=== PATIENT | female | born 1955 ===

== ENCOUNTER 2016-11-20 16:04 | Emergency (ER) | payer SELFPAY ==
[2016-11-20 16:16] VITALS: BP 131/76; PULSE 73; RESP 18; TEMP 98.8; O2SAT 99
[2016-11-20] MEDS ORDERED: Naproxen 500 MG TAB PO STA (16:21)
--- NOTE | 2016-11-20 17:42 | ED PDOC ---
Arrival/HPI - General Chief Complaint: Hip Pain Time Seen by Provider: 11/20/16 16:17 Historian: Patient - History of Present Illness Associated Symptoms (Text): 11/20/16 17:40 Yohana Eastman, 60 year old female presents to the ED on 11/20/16 with right hip pain after experiencing a fall. She denies any head injury. Past Medical History - Provider Review Nursing Documentation Reviewed: Yes - Past Medical History Past Medical History: No Previous - Psychiatric Hx Substance Use: No - Surgical History Hx Hysterectomy: Yes - Anesthesia Hx Anesthesia: Yes Hx Anesthesia Reactions: No Family/Social History - Physician Review Nursing Documentation Reviewed: Yes Family/Social History: Unknown Family HX Smoking Status: Never Smoked Hx Alcohol Use: No Hx Substance Use: No Allergies/Home Meds Allergies/Adverse Reactions: Allergies muscle relaxant Allergy (Uncoded 11/20/16 16:13) RASH Review of Systems - Physician Review All systems were reviewed & negative as marked: Yes - Review of Systems Constitutional: absent: Other (no head injury) Musculoskeletal: Other (right hip pain) Physical Exam Vital Signs Reviewed: Yes Vital Signs Temp Pulse Resp BP Pulse Ox 11/20/16 16:14 98.8 F 73 18 131/76 99 - Systems Exam Lower Extremity: Present: Normal ROM Psychiatric: Present: Alert, Oriented x 3 Medical Decision Making ED Course and Treatment: 11/20/16 17:47 Initial Impression: Right hip pain Initial Plan: * HIP MIN 2V w/ Pelvis RT [RAD] Stat * Naproxen 500 mg PO Once Stat * Reevaluation Scribe Attestation: Documented by Cristina Harp, acting as a scribe for Mago Regan PA-C. Provider Scribe Attestation: All medical record entries made by the Scribe were at my direction and personally dictated by me. I have reviewed the chart and agree that the record accurately reflects my personal performance of the history, physical exam, medical decision making, and the department course for this patient. I have also personally directed, reviewed, and agree with the discharge instructions and disposition. - RAD Interpretation Radiology Orders: 11/20/16 16:18 Hip Right [HIP MIN 2V W/ PELVIS RT] [RAD] Stat - Medication Orders Current Medication Orders: Discontinued Medications Naproxen (Naproxen) 500 mg PO ONCE STA Stop: 11/20/16 16:22 Last Admin: 11/20/16 16:26 Dose: 500 mg
--- NOTE | 2016-11-20 17:58 | ED PDOC ---
HPI: General Adult Time Seen by Provider: 11/20/16 16:17 Chief Complaint (Nursing): Hip Pain Chief Complaint (Provider): Right hip pain History Per: Patient History/Exam Limitations: no limitations Onset/Duration Of Symptoms: Days Have you had recent travel within the past 21 days to any of the following countries: [place], [place], [place] or [place]?: No Current Symptoms Are (Timing): Still Present Severity: Moderate Pain Scale Rating Of: 7 Location Of Discomfort (Image): 1 - Pain 2 - Pain Additional Complaint(s): Yohana Eastman, 60 year old female presents to the ED on 11/20/16 with right hip pain after experiencing a fall. PT states she slipped. No dizziness, chest pain or SOB. She denies any head injury. Past Medical History Reviewed: Historical Data, Nursing Documentation, Vital Signs Vital Signs: Last Vital Signs Temp 98.8 F 11/20/16 16:14 Pulse 73 11/20/16 16:14 Resp 18 11/20/16 16:14 BP 131/76 11/20/16 16:14 Pulse Ox 99 11/20/16 16:14 - Medical History PMH: No Chronic Diseases - Surgical History Surgical History: No Surg Hx - Family History Family History: States: Unknown Family Hx - Living Arrangements Living Arrangements: With Family - Social History Current smoker - smoking cessation education provided: No Alcohol: None Drugs: Denies - Home Medications Home Medications: Ambulatory Orders Medication Instructions Recorded Naproxen 500 mg PO Q12H PRN #20 ect 11/20/16 - Allergies Allergies/Adverse Reactions: Allergies Allergy/AdvReac Type Severity Reaction Status Date / Time muscle relaxant Allergy RASH Uncoded 11/20/16 16:13 Review of Systems ROS Statement: Except As Marked, All Systems Reviewed And Found Negative Musculoskeletal: Positive for: Other Physical Exam - Reviewed Nursing Documentation Reviewed: Yes Vital Signs Reviewed: Yes - Physical Exam Appears: Positive for: Well, Non-toxic, No Acute Distress Head Exam: Positive for: ATRAUMATIC, NORMAL INSPECTION, NORMOCEPHALIC Skin: Positive for: Normal Color (No ecchymosis or erythema of the right ip ), Warm Eye Exam: Positive for: Normal appearance ENT: Positive for: Normal ENT Inspection Neck: Positive for: Normal, Painless ROM Cardiovascular/Chest: Positive for: Regular Rate, Rhythm Respiratory: Positive for: Normal Breath Sounds. Negative for: Accessory Muscle Use, Respiratory Distress Gastrointestinal/Abdominal: Positive for: Normal Exam, Bowel Sounds, Soft Back: Positive for: Normal Inspection Extremity: Positive for: Normal ROM (Pt reports pain with hip flexion). Negative for: Tenderness, Deformity, Swelling Neurologic/Psych: Positive for: Alert, Oriented - ECG O2 Sat by Pulse Oximetry: 99 Medical Decision Making Medical Decision Making: x-ray without acute fracture or dislocation. Disposition - Clinical Impression Clinical Impression: Hip pain - Patient ED Disposition Is Patient to be Admitted: No Counseled Patient/Family Regarding: Diagnosis, Need For Followup, Rx Given - Disposition Referrals: [facility] [Outside] Disposition: Routine/Home Disposition Time: 17:58 Condition: GOOD Prescriptions: Naproxen 500 mg PO Q12H PRN #20 ect PRN Reason: pain Instructions: Hip Pain (ED) Print Language: CROATIAN
--- NOTE | 2016-11-20 18:37 | RAD ---
Indication: Pain status post fall Right hip with pelvis radiographs Comparison: None available Findings: Examination limited by habitus. No acute displaced fracture or dislocation identified. Sacroiliac joints appear intact. Mild constipation. Soft tissues appear unremarkable. No evidence of radiopaque foreign body. Impression: No acute displaced fracture or dislocation evident. If high clinical index of suspicion, suggest cross-sectional imaging for further evaluation. Otherwise, if symptoms persist or if there is continued clinical concern, x-ray follow-up in 7-10 days should be considered.
== END 2016-11-20 18:06 | disposition home or self-care (01) ==
LOC: H.ER 16:04
DX: M25.551 Pain in right hip (principal)